=== PATIENT | female | born 1980 | race Caucasian/White ===

== ENCOUNTER 2017-09-16 03:57 | Emergency (ER) | payer OTHER ==
[~2017-09-16] VITALS: Ht 160 cm; Wt 57.6 kg
[2017-09-16 04:15] VITALS: BP 116/77
--- NOTE | 2017-09-16 04:22 | Emergency Room Report ---
History of Present Illness General Chief Complaint: Abdominal Pain Source: Patient Present Illness HPI This is a 37-year-old female with a previous history of endometriosis were in surgery when she was 21. She has no medical problems since then. She presents with chief complaint of abdominal pain this started about 24 hours ago. Sharp and crampy in nature. Now with nausea. No radiation. No vomiting or diarrhea. Pain is sharp 9 out of 10. Nothing made it better. Nothing made it worse. No urinary complaint. Allergies: Coded Allergies: CODEINE (Verified Allergy, Unknown, 09/16/17) palpitations PENICILLINS (Verified Allergy, Unknown, 09/16/17) Patient History Past Medical History: none, see triage record, old chart reviewed Past Surgical History: other Pertinent Family History: none Social History: Denies: smoking Last Menstrual Period: 09/15/17 Now: No : 2 Para: 2 Immunizations: other Reviewed Nursing Documentation: PMH: Agreed, PSxH: Agreed Nursing Documentation-PMH Past Medical History: No Stated History Review of Systems Eye: Denies: eye pain, blurred vision ENT: Denies: ear pain, nose congestion, throat swelling Respiratory: Denies: cough, shortness of breath Cardiovascular: Denies: chest pain, palpitations Gastrointestinal: Reports: abdominal pain, nausea, Denies: diarrhea, vomiting Musculoskeletal: Denies: back pain, joint pain Skin: Denies: rash Neurological: Denies: headache, numbness Endocrine: Denies: increased thirst, increased urine Hematologic/Lymphatic: Denies: easy bruising All Other Systems: negative except mentioned in HPI Physical Exam Vital Signs Date Time Temp Pulse Resp B/P (MAP) Pulse Ox O2 Delivery O2 Flow Rate FiO2 09/16/17 04:00 98.3 72 18 116/77 98 Room Air 98.2 vitals normal Sp02 EP Interpretation: reviewed, normal General Appearance: well appearing, no apparent distress, alert Head: normocephalic, atraumatic Eyes: bilateral eye PERRL, bilateral eye EOMI ENT: hearing grossly normal, normal pharynx Neck: full range of motion, supple, no meningismus Respiratory: chest non-tender, lungs clear, normal breath sounds Cardiovascular #1: regular rate, rhythm, no murmur Gastrointestinal: non tender, no mass, no organomegaly, no bruit, non-distended , abnormal bowel sounds - hyperactive Musculoskeletal: back normal, gait/station normal, normal range of motion Psychiatric: mood/affect normal Skin: warm/dry Medical Decision Making Diagnostic Impression: Primary Impression: Abdominal pain Qualified Codes: R10.84 - Generalized abdominal pain ER Course Patient presents with abdominal pain. CT scan unremarkable. No evidence of hepatitis. No evidence of appendicitis obstruction. We'll discharge home. Lab Results Impression labs unremarkable CT/MRI/US Diagnostic Results CT/MRI/US Diagnostic Results : Imaging Test Ordered: CT abdomen and pelvis Impression read by radiologist. Mild periportal edema Gallstone. Appendix not visualized Last Vital Signs Date Time Temp Pulse Resp B/P (MAP) Pulse Ox O2 Delivery O2 Flow Rate FiO2 09/16/17 04:00 98.3 72 18 116/77 98 Room Air 98.2 Status: improved Disposition: HOME, SELF-CARE Condition: Stable Scripts Hydrocodone/Acetaminophen 5-325* (HYDROCODONE/ACETAMINOPHEN 5-325*) 1 Each Tablet 1 TAB ORAL Q6H Y for For Pain, #10 TAB 0 Refills Prov: CAM LAO M.D. 09/16/17 Patient Instructions: Abdominal Pain, Adult Additional Instructions: Follow-up with your DrGunjan in 2-3 days and not better. Return if worse. Advance diet as tolerated. CAM LAO M.D. Sep 16, 2017 04:22
[2017-09-16] MEDS ORDERED: Ketorolac 30mg Inj IV ONE (04:30)
[2017-09-16 04:31] LABS: APPEARANCE,URINE SLIGHTLY CLOUDY; BILIRUBIN, URINE NEGATIVE (NEGATIVE); GLUCOSE, URINE (UA) NEGATIVE (NEGATIVE); KETONES,URINE 2+ (NEGATIVE); LEUKOCYTE ESTERASE ,URINE 1+ (NEGATIVE); NITRITE,URINE NEGATIVE (NEGATIVE); PH,URINE 5 (4.5-8.0); PROTEIN,URINE 2+ (NEGATIVE); UROBILINOGEN,URINE 1 MG/DL (0.0-1.0)
[2017-09-16 04:32] LABS: COLOR,URINE YELLOW
[2017-09-16 05:05] LABS: BASOPHILS % (AUTO) 0.8 % (0.0-2.0); EOSINOPHILS % (AUTO) 1.6 % (0.0-3.0); HEMATOCRIT 38.6 % (37.0-47.0); LYMPHOCYTES % (AUTO) 10.8 % (20.0-45.0); MEAN CORPUSCULAR VOLUME 92 FL (80-99); NEUTROPHILS % (AUTO) 80.8 % (45.0-75.0); PLATELET COUNT 261 K/UL (150-450); RED BLOOD COUNT 4.21 M/UL (4.20-5.40); RED CELL DISTRIBUTION WIDTH 10.8 % (11.6-14.8); WHITE BLOOD COUNT 10.3 K/UL (4.8-10.8)
[2017-09-16 05:09] LABS: ANION GAP 8 mmol/L (5-15); BLOOD UREA NITROGEN 10 mg/dL (7-18); CALCIUM 8.6 MG/DL (8.5-10.1); CARBON DIOXIDE 28 MMOL/L (21-32); CHLORIDE 104 MMOL/L (98-107); CREATININE 0.9 MG/DL (0.55-1.30); POTASSIUM 3.5 MMOL/L (3.5-5.1); SODIUM 140 MMOL/L (136-145)
[2017-09-16 05:14] LABS: ALANINE AMINOTRANSFERASE 20 U/L (12-78); ALBUMIN 3.9 G/DL (3.4-5.0); ALBUMIN/GLOBULIN RATIO 1.2 (1.0-2.7); ALKALINE PHOSPHATASE 53 U/L (46-116); ASPARTATE AMINO TRANSFERASE 16 U/L (15-37); BILIRUBIN,TOTAL 0.6 MG/DL (0.2-1.0)
[2017-09-16] MEDS ORDERED: Morphine Sulfate 4mg/ml Inj IVP ONE (05:15)
[2017-09-16 06:15] VITALS: BP 97/59
[2017-09-16] MEDS ORDERED: HYDROCODON-ACE1 EA15 ORAL (06:49)
[2017-09-16 06:59] VITALS: BP 103/58
[2017-09-16 07:09] VITALS: BP 103/58
--- NOTE | 2017-09-16 12:52 | Diagnostic Imaging Report ---
Indication: Pain Technique: CT of the abdomen and pelvis utilizing automated exposure control with intravenous contrast. Venous scanning performed. CT dose: Total DLP 645 mGycm; CTDI vol 13.6 mGy Comparison: None Findings: There is linear atelectasis/scarring in the left lower lobe. Some dependent atelectatic changes are also noted in the right lower lobe. Heart size within normal limits. No pericardial effusion. There is mild periportal edema. Multiple calcified gallstones noted within the gallbladder, which is not distended. No CT evidence to suggest acute cholecystitis. No evidence of intrahepatic or extra hepatic biliary duct dilatation. Portal veins and hepatic veins are patent. Spleen, adrenal glands and pancreas are grossly unremarkable. Kidneys enhance symmetrically. There is no urinary tract stone or hydronephrosis bilaterally. The bladder is unremarkable in appearance. Uterus and adnexa are grossly unremarkable for CT. There is no evidence of free intraperitoneal air. No evidence of bowel obstruction. There is mild free fluid in the pelvis, possibly physiologic. No evidence of bowel wall thickening however evaluation somewhat limited without oral contrast. The appendix is not definitively visualized however there are no focal inflammatory changes in the right lower quadrant to suggest acute appendicitis. There is no pathologically enlarged lymphadenopathy. Abdominal aorta is normal in caliber. No acute osseous abnormality is seen. IMPRESSION: Cholelithiasis. No CT evidence to suggest an acute cholecystitis. Mild periportal edema, nonspecific sign. Correlate with LFTs and clinical findings recommended to exclude acute hepatic inflammation. Additional findings as above. This corresponds with the [facility]rad preliminary report. The CT scanner at [facility] is accredited by the [employer] and the scans are performed using protocols designed to limit radiation exposure to as low as reasonably achievable to attain images of sufficient resolution adequate for diagnostic evaluation.
== END 2017-09-16 07:09 | disposition home or self-care (01) ==
LOC: EMR 04:30
DX: R10.9 Unspecified abdominal pain (principal); R60.0 Localized edema; Z88.0 Allergy status to penicillin; Z88.5 Allergy status to narcotic agent; R11.0 Nausea; K80.20 Calculus of gallbladder without cholecystitis without obstruction
CPT/HCPCS: 36415; 74177; 80053; 81003; 81025; 83690; 85025; 87086; 96374; 96375; 99284; J1885; J2270; J2405; Q9967